=== PATIENT | male | born 1990 | race Caucasian/White ===

== ENCOUNTER → 2019-05-07 | Outpatient (REF) | payer BC | LOC: M SMT 12:46 | PROVIDERS: ATTEND Urology | DX: N41.9 Inflammatory disease of prostate, unspecified (principal) ==

== ENCOUNTER → 2019-06-30 | Outpatient (REF) | payer BC ==
[2019-06-30 18:50] LABS: APPEARANCE, URINE CLEAR (CLEAR); BACTERIA, URINE AUTO NEGATIVE (NEGATIVE); BILIRUBIN, URINE AUTO NEGATIVE (NEGATIVE); BLOOD, URINE BLOOD NEGATIVE (NEGATIVE); COLOR, URINE YELLOW (YELLOW); GLUCOSE, URINE (UA) AUTO NEGATIVE (NEGATIVE); KETONE, URINE AUTO NEGATIVE (NEGATIVE); LEUKOCYTE ESTERASE, URINE AUTO NEGATIVE (NEGATIVE); MUCUS, URINE SMALL (NEGATIVE); NITRITE, URINE AUTO NEGATIVE (NEGATIVE); PROTEIN, URINE AUTO NEGATIVE (NEGATIVE); RBC, URINE AUTO 0 /HPF (0-3); SPECIFIC GRAVITY URINE AUTO 1.012 (1.002-1.035); SQUAMOUS EPITHELIAL CELL UR AU 0 /HPF (0-6); UROBILINOGEN, URINE AUTO 0.2 mg/dL (0.0-2.0); WBC, URINE AUTO 0 /HPF (0-3)
== END ==
LOC: M SMT 18:17
PROVIDERS: ATTEND Urology
DX: N41.9 Inflammatory disease of prostate, unspecified (principal)

== ENCOUNTER → 2019-07-16 | Outpatient (CLI) | payer BC ==
[2019-07-16 14:13] LABS: FREE THYROXINE INDEX 2.7 % (1.4-3.8); THYROID STIMULATING HORMONE 2.58 uIU/ML (0.358-3.740); THYROXINE (T4) 7.9 UG/DL (4.5-12.0)
[2019-07-16 14:15] LABS: FOLLICLE STIMULATING HORMONE 4.5 mIU/mL (1.4-18.1); LUTEINIZING HORMONE 4.1 mIU/mL (1.5-9.3); PROLACTIN 5.1 NG/ML (2.1-17.7)
[2019-07-17 14:13] LABS: TESTOSTERONE FREE (DIRECT) 17.5 pg/mL (9.3-26.5)
== END ==
LOC: M SMT 10:29
PROVIDERS: ATTEND Specialist
DX: N52.9 Male erectile dysfunction, unspecified (principal)